=== PATIENT | female | born 1955 | race Caucasian/White ===

== ENCOUNTER 2022-05-30 17:24 | Emergency (ER) | payer MEDICAID ==
[~2022-05-30] VITALS: Wt 59.0 kg
[~2022-05-30 17:24] MED LIST: MULTIPLE VITAMI1 CAP PO; ZOLOFT50 MG PO
== END 2022-05-30 19:45 | disposition left against medical advice (07) ==
LOC: ED 17:24
DX: M79.662 Pain in left lower leg (principal); Z79.899 Other long term (current) drug therapy

== ENCOUNTER 2022-07-17 13:13 | Emergency (ER) | payer MEDICAID ==
[~2022-07-17] VITALS: Ht 157.4 cm
[2022-07-17 14:13] LABS: BASO % 0.4 % (0.0-1.0); EOS # 0.1 10*3/uL (0.0-0.4); EOS % 1.5 % (1.0-4.0); HEMATOCRIT 39.1 % (37.0-47.0); LYMPH # 1.6 10*3/uL (1.3-4.4); LYMPH % 29.2 % (27.0-41.0); MEAN CELL VOLUME 90.1 fl (81.0-99.0); MEAN CORPUSCULAR HGB 28.8 pg (27.0-31.0); MEAN PLATELET VOLUME 11.8 fl (9.6-12.3); MONO # 0.5 10*3/uL (0.1-1.0); MONO % 9.2 % (3.0-9.0); NEUT # 3.2 10*3/uL (2.3-7.9); NEUT % 59.5 % (47.0-73.0); PLATELET COUNT AUTOMATED 115 10*3/uL (130-400); RED BLOOD COUNT 4.34 10*6/uL (4.10-5.10); RED CELL DISTRI WIDTH 13.6 % (0-14.5); WHITE BLOOD COUNT 5.3 10*3/uL (4.8-10.8)
[2022-07-17 14:38] LABS: ALKALINE PHOSPHATASE 63 U/L (46-116); BUN 15 mg/dl (9-23); CHLORIDE 108 mmol/L (98-107); CREATININE 0.77 mg/dL (0.55-1.02); FREE T4 0.93 ng/dl (0.89-1.76); POTASSIUM 3.8 mmol/L (3.4-5.1); SGPT/ALT 22 U/L (10-49); SODIUM 141 mmol/L (136-145); THYROID STIM HORMONE (HS) 26.928 uIU/ml (0.550-4.780); TOTAL PROTEIN 7.2 gm/dL (6.0-8.0)
[2022-07-17 14:39] LABS: ETHYL ALCOHOL < 3.0 mg/dl (<3)
[2022-07-17 21:25] LABS: BILIRUBIN Negative (Negative); BLOOD Negative (Negative); CLARITY Clear (Clear); COLOR Yellow (Yellow); GLUCOSE Negative (Negative); KETONE Negative (Negative); LEUKO ESTERASE Negative (Negative); NITRITE Negative (Negative); PH 5.5 (4.5-8.0); SPECIFIC GRAVITY 1.025 (1.001-1.030)
[2022-07-17 21:32] LABS: URINE AMPHETAMINES Negative (1000ng/ml); URINE BARBITURATES Negative (200ng/ml); URINE BENZODIAZEPINES Negative (200ng/ml); URINE CANNABINOIDS (THC) Negative (50ng/ml); URINE COCAINE Negative (300ng/ml); URINE METHADONE Negative (300ng/ml); URINE OPIATES Negative (300ng/ml); URINE PHENCYCLIDINE Negative (25ng/ml)
[2022-07-17 21:38] LABS: BACTERIA 2+; HYALINE CAST 0-2
== END 2022-07-18 19:47 | disposition home or self-care (01) ==
LOC: ED 13:13
PROVIDERS: Physician Assistant
DX: U07.1 COVID-19 (principal); R46.89 Other symptoms and signs involving appearance and behavior